=== PATIENT | female | born 1960 | race Caucasian/White ===

== ENCOUNTER 2016-11-21 22:50 | Emergency (ER) | payer OTHER ==
[~2016-11-21] VITALS: Ht 156.2 cm; Wt 69.9 kg
[2016-11-21 22:53] VITALS: BP 158/104
--- NOTE | 2016-11-21 23:57 | ED UPPER/LOWER EXTREMITY COMPL ---
History of Present Illness General Chief Complaint: Hand or Wrist Injury Stated Complaint: L WRIST INJURY Source: patient Exam Limitations: no limitations Vital Signs & Intake/Output Vital Signs & Intake/Output Vital Signs Date Time Temp Pulse Resp B/P Pulse O2 O2 Flow FiO2 Ox Delivery Rate 11/21 2253 97.5 92 20 158/104 97 Room Air ED Intake and Output 11/22 0000 11/21 1200 Intake Total Output Total Balance Patient 154 lb Weight Allergies Coded Allergies: No Known Allergies (11/21/16) Reconcile Medications Ibuprofen 800 MG TABLET 1 TAB PO TID PRN PAIN Triage Note: TRIAGE: PT TO ER C/C PAIN TO L WRIST, ONSET 18:00, CONSTANT AND WORSENING SINCE ONSET. 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 Triage Nurses Notes Reviewed? yes Onset: Abrupt Duration: hour(s): Timing: single episode today Severity: moderate Pain/Injury Location: Left: Wrist. Method of Injury: "I was lifting a patient." Modifying Factors: Improves With: rest. Worsens With: movement. Associated Symptoms: left wrist pain HPI: 56-year-old woman who prior good health presents with left wrist pain. 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 She notes that she twisted her left wrist during a transfer. She noted pain running up her forearm. She notes that it hurts when she moves her wrist. She notes no bony pain or abnormality. She is otherwise well. Past History Travel History Traveled to [place] past 21 day No Medical History Any Pertinent Medical History? see below for history Neurological: NONE EENT: NONE Cardiovascular: NONE Respiratory: NONE Gastrointestinal: NONE Hepatic: NONE Renal: NONE Musculoskeletal: NONE Psychiatric: NONE Endocrine: NONE Blood Disorders: NONE Cancer(s): NONE BEATER DUMPER/Reproductive: NONE Surgical History Surgical History: none Psychosocial History What is your primary language Maltese Tobacco Use: Never used ETOH Use: occasional use Illicit Drug Use: denies illicit drug use Family History Hx Contributory? No Review of Systems Review of Systems Constitutional: Reports: no symptoms. EENTM: Reports: no symptoms. Respiratory: Reports: no symptoms. Cardiovascular: Reports: no symptoms. Gastrointestinal/Abdominal: Reports: no symptoms. Genitourinary: Reports: no symptoms. Musculoskeletal: Reports: no symptoms. Skin: Reports: no symptoms. Neurological/Psychological: Reports: no symptoms. Hematologic/Endocrine: Reports: no symptoms. Immunological: Reports: no symptoms. All Other Systems: Reviewed and Negative Physical Exam Physical Exam General Appearance: well developed/nourished, mild distress Head: atraumatic Progress Differential Diagnosis: contusion, fracture, sprain, tendon injury Plan of Care: Orders Procedure Date/time Status Durable Medical Equipment 11/22 13 Active Diagnostic Imaging: Viewed by Me: Radiology Read. Discussed w/RAD: Radiology Read. Radiology Impression: LEFT WRIST... NO FX. FULL REPORT BELOW. Comments: PATIENT: RAPHAEL SINGH PRESENT AGE: 56 PATIENT ACCOUNT NO: [id number] : 61 LOCATION: [facility] ORDERING PHYSICIAN: NASIMA KULKARNI MD SERVICE DATE: 11/21/16 EXAM TYPE: RAD - XRY-WRIST COMPLETE-LEFT EXAMINATION: XR WRIST, LEFT CLINICAL INFORMATION: Left wrist pain. COMPARISON: None TECHNIQUE: Four views of the left wrist. FINDINGS: The bones and soft tissues are normal. No fracture. Alignment is anatomic with normal joint spaces. No erosions or abnormal soft tissue calcifications. IMPRESSION: Normal left wrist. DICTATED BY: AINSLEY TUCKER MD DATE/TIME DICTATED:11/22/1624 PATTERN STORAGE CLERK:NOE DATE/TIME TRANSCRIBED:11/22/1624 CONFIDENTIAL, DO NOT COPY WITHOUT APPROPRIATE AUTHORIZATION. <Electronically signed in Other Vendor System> SIGNED BY: AINSLEY TUCKER MD 11/22/1628 Departure Departure Disposition: HOME OR SELF CARE Condition: Stable Clinical Impression Primary Impression: Left wrist sprain Referrals: HAKEEM ORTIZ DO (PCP/Family) Departure Forms: Customer Survey [employer] Employee Acc General Discharge Information Prescriptions: Current Visit Scripts Ibuprofen 1 TAB PO TID PRN PAIN #60 TAB Comments left wrist splint placed on left wrist by nursing team... pt referred to occupational medicine in the morning.
[2016-11-22] MEDS ORDERED: IBUPROFEN800 M1 PO (00:28)
--- NOTE | 2016-11-22 00:29 | RADIOLOGY REPORT ---
EXAMINATION: XR WRIST, LEFT CLINICAL INFORMATION: Left wrist pain. COMPARISON: None TECHNIQUE: Four views of the left wrist. FINDINGS: The bones and soft tissues are normal. No fracture. Alignment is anatomic with normal joint spaces. No erosions or abnormal soft tissue calcifications. IMPRESSION: Normal left wrist.
[2017-03-18] MEDS ORDERED: MECLIZINE HCL25 MG PO (00:14)
[2017-03-18] MEDS ORDERED: ATIVAN0.5 M1 PO (00:17)
== END 2016-11-22 00:43 ==
LOC: ERH 22:50
DX: S63.502A Unspecified sprain of left wrist, initial encounter (principal); X58.XXXA Exposure to other specified factors, initial encounter
CPT/HCPCS: 73110-LT